=== PATIENT | male | born 1970 | race American Indian/Alaskan Native ===

== ENCOUNTER 2016-09-17 20:50 | Emergency (ER) | payer BC, OTHER ==
[~2016-09-17] VITALS: Ht 177.8 cm; Wt 108.6 kg
[2016-09-17] MEDS ORDERED: SODIUM CHLORIDE 0.9% 1,000 ML IV ONE (21:47)
[2016-09-17] MEDS ORDERED: [UNRECOGNIZED DRUG - CODE] PO (21:50)
[2016-09-17] MEDS ORDERED: ONDANSETRON 2MG/ML, 2ML IVPush ONE (22:00)
[2016-09-17] MEDS ORDERED: SODIUM CHLORIDE FLUSH 10ML SYR IVF ONE (22:00)
[2016-09-17] MEDS ORDERED: MORPHINE SULFATE 4 MG/ML, 1ML ONE ×2 (22:02→23:21)
[2016-09-17] MEDS ORDERED: ONDANSETRON 2MG/ML, 2ML ONE (22:03)
[2016-09-17] MEDS: MORPHINE SULFATE 4 MG/ML, 1ML IVPush PRN ×2 (22:07→23:26)
[2016-09-17 22:32] LABS: BLOOD UREA NITROGEN 20 mg/dL (7-18)
[2016-09-17 22:36] LABS: ASPARTATE AMINO TRANSFERASE 13 U/L (15-37)
[2016-09-18] VITALS: BP 133/77
== END 2016-09-18 00:02 | disposition home or self-care (01) ==
LOC: ED 22:42
DX: K80.50 Calculus of bile duct without cholangitis or cholecystitis without obstruction (principal)
CPT/HCPCS: 36415; 76700; 80053; 81003; 83690; 85025; 96374; 96375; 96376; 99285; J2405

== ENCOUNTER 2016-10-18 08:55 | Day surgery (SDC) | payer OTHER ==
[~2016-10-18] VITALS: Ht 177.8 cm; Wt 103.8 kg
[~2016-10-18 08:55] MED LIST: BUPIVACAINE/PF 0.5% ONE; EPINEPHRINE 1 MG/ML, 1ML ONE; [UNRECOGNIZED DRUG - CODE] PO
[2016-10-18] MEDS ORDERED: FENTANYL PF 100 MCG/2ML ONE ×3 (10:18→12:15)
[2016-10-18] MEDS ORDERED: MIDAZOLAM 1 MG/ML, 2ML ONE (10:18)
[2016-10-18] MEDS ORDERED: LACTATED RINGERS 1,000 ML IV SCH (10:19)
[2016-10-18] MEDS ORDERED: FEXO1TAB29 PO (10:19)
[2016-10-18] MEDS ORDERED: ACET-1600 PO (10:19)
[2016-10-18 10:21] VITALS: BP 138/90
[2016-10-18] MEDS ORDERED: THROMBIN 5,000 UNIT VIAL TP ONE (10:27)
[2016-10-18] MEDS ORDERED: NEOSTIGMINE 1 MG/ML, 10ML ONE (11:25)
[2016-10-18] MEDS ORDERED: CEFAZOLIN 1,000 MG ONE (11:25)
[2016-10-18] MEDS ORDERED: GLYCOPYRROLATE 0.2MG/1ML ONE (11:25)
[2016-10-18] MEDS ORDERED: PROPOFOL 10 MG/ML, 20ML ONE (11:25)
[2016-10-18] MEDS ORDERED: ROCURONIUM 10 MG/ML ONE ×2 (11:25)
[2016-10-18] MEDS ORDERED: DEXAMETHASONE 4 MG/ML, 1ML ONE (11:25)
[2016-10-18] MEDS ORDERED: SUCCINYLCHOLINE 20 MG/ML, 10ML ONE (11:25)
[2016-10-18] MEDS ORDERED: ONDANSETRON 2MG/ML, 2ML ONE (11:25)
[2016-10-18] MEDS ORDERED: OXYcodone 5 MG/5 ML ORAL.SOL UDC PO PRN (12:00)
[2016-10-18] MEDS ORDERED: METOCLOPRAMIDE 5 MG/ML, 2ML IV PRN (12:00)
[2016-10-18] MEDS ORDERED: HYDROmorphone 1 MG/ML, 1ML IV PRN (12:00)
[2016-10-18] MEDS ORDERED: ONDANSETRON 2MG/ML, 2ML IVPush PRN (12:00)
[2016-10-18] MEDS ORDERED: hydrALAzine 20 MG/ML, 1ML IV PRN (12:00)
[2016-10-18] MEDS ORDERED: ACETAMINOPHEN 325 MG TABLET PO PRN (12:00)
[2016-10-18] MEDS ORDERED: LABETALOL 5MG/ML, 20ML IV PRN (12:00)
[2016-10-18] MEDS ORDERED: ACETAMINOPHEN 650 MG/20.3 ML UDC ONE (12:15)
[2016-10-18] MEDS ORDERED: ACETAMINOPHEN 325 MG TABLET ONE (12:15)
[2016-10-18] MEDS ORDERED: KETOROLAC 30 MG/1 ML ONE (12:15)
[2016-10-18] MEDS ORDERED: OXYcodone 5 MG/5 ML ORAL.SOL UDC ONE (12:16)
[2016-10-18] MEDS ORDERED: KETOROLAC 30 MG/1 ML IVPush STA (12:16)
[2016-10-18] MEDS: FENTANYL PF 100 MCG/2ML IV PRN ×2 (12:41→13:00)
== END 2016-10-18 15:50 ==
LOC: OUT 08:55
PROVIDERS: ATTEND Colon & Rectal Surgery
DX: K80.10 Calculus of gallbladder with chronic cholecystitis without obstruction (principal); Z98.890 Other specified postprocedural states; Z83.3 Family history of diabetes mellitus; Z91.09 Other allergy status, other than to drugs and biological substances
CPT/HCPCS: 47562; 88304; J0171; J0330; J0690; J1100; J1885; J2250; J2405; J2704; J2710; J3010; J3490; J7120